=== PATIENT | male | born 1945 | race Caucasian/White ===

== ENCOUNTER 2018-02-17 06:44 | Day surgery (SDC) | payer OTHER, MEDICARE ==
[~2018-02-17 06:44] MED LIST: Lactated Ringers 1,000 ML IV SCH; Lidocaine 1%/Sod Bicarbonate in NS 8.4% 1 ML Syringe IDERM PRN; Sodium Chloride 0.9% 10 ML Syringe FLUSH PRN
--- NOTE | 2018-02-17 07:49 | PCM.PREANE ---
Preanesthetic Assessment - Anesthesia/Transfusion/Family Hx Anesthesia History: Prior Anesthesia Without Reaction Family History of Anesthesia Reaction: No Transfusion History: No Prior Transfusion(s) - Review of Systems General: No Symptoms Pulmonary: No Symptoms Cardiovascular: No Symptoms Gastrointestinal: No Symptoms Neurological: Seizure (seizure disorder), Other (bee sting reaction) Other: Reports: None - Physical Assessment NPO Status Date: 02/16/18 NPO Status Time: 00:00 Pulse: 63 O2 Sat by Pulse Oximetry: 98 Respiratory Rate: 16 Blood Pressure: 159/93 Temperature: 36.6 C Height: 1.8 m Weight: 91 kg ASA Class: 3 Mental Status: Alert & Oriented x3 Dentition: Reports: Emma(s), Missing Tooth/Teeth Thyro-Mental Finger Breadths: 3 Mouth Opening Finger Breadths: 3 ROM/Head Extension: Full Lungs: Clear to Auscultation, Normal Respiratory Effort Cardiovascular: Regular Rate, Regular Rhythm - Allergies Allergies/Adverse Reactions: Allergies Allergy/AdvReac Type Severity Reaction Status Date / Time bee pollen Allergy Anaphylactic Verified 02/16/18 15:38 Shock omeprazole Allergy Cannot Verified 02/16/18 15:38 Remember - Blood Blood Available: No Product(s) Available: None - Anesthesia Plan Pre-Op Medication Ordered: None - Acknowledgements Anesthesia Type Planned: MAC Pt an Appropriate Candidate for the Planned Anesthesia: Yes Alternatives and Risks of Anesthesia Discussed w Pt/Guardian: Yes Pt/Guardian Understands and Agrees with Anesthesia Plan: Yes PreAnesthesia Questionnaire HEENT History: Reports: Hard of Hearing, Other (See Below) Other HEENT History: tinnitis, bilateral hearing aids Cardiovascular History: Reports: Other (See Below) Other Cardiovascular History: palpitations, pvcs Respiratory History: Reports: SOB Gastrointestinal History: Reports: Hiatal Hernia, Other (See Below) Other Gastrointestinal History: dysphagia, heartburn, reflux, melena, salmonella , colitis Genitourinary History: Reports: Other (See Below) Other Genitourinary History: ED, nocturia, vasectomy CRYPTOGRAPHER History: Reports: None Musculoskeletal History: Reports: Arthritis, Other (See Below) Other Musculoskeletal History: finger numbness, finger surgery Neurological History: Reports: Seizure, Other (See Below) Other Neuro History: dizziness Psychiatric History: Reports: Addiction, Other (See Below) Other Psychiatric History: ETOH abuse, insomnia Endocrine/Metabolic History: Reports: None Hematologic History: Reports: Anemia Immunologic History: Reports: None Oncologic (Cancer) History: Reports: Prostate Dermatologic History: Reports: Other (See Below) Other Dermatologic History: brown recluse spider bite with surgical intervention - Past Surgical History HEENT Surgical History: Reports: LASIK Respiratory Surgical History: Reports: None GI Surgical History: Reports: None Male Surgical History: Reports: Vasectomy Endocrine Surgical History: Reports: None Neurological Surgical History: Reports: None Oncologic Surgical History: Reports: None - SUBSTANCE USE Smoking Status *Q: Never Smoker Tobacco Use Within Last Twelve Months: No Second Hand Smoke Exposure: No Days Per Week of Alcohol Use: 5 Number of Drinks Per Day: 1 Total Drinks Per Week: 5 Recreational Drug Use History: Yes Recreational Drug Type: Reports: Marijuana/Hashish (a month ago) - HOME MEDS Home Medications: Home Meds EPINEPHrine [Epipen] 1 dose IM ONETIME PRN 02/16/18 [History] - CURRENT (IN HOUSE) MEDS Current Meds: Current Medications Lactated Ringer's (Ringers, Lactated) 1,000 mls @ 125 mls/hr IV ASDIRECTED CAYETANO Last Admin: 02/17/18 07:20 Dose: 125 mls/hr Lidocaine/Sodium Bicarbonate (Buffered Lidocaine 1% In Ns 8.4%) 0.25 ml IDERM ONETIME PRN PRN Reason: Prior to IV Start Last Admin: 02/17/18 07:19 Dose: 0.25 ml Sodium Chloride (Saline Flush) 10 ml FLUSH ASDIRECTED PRN PRN Reason: Keep Vein Open
[2018-02-17] MEDS ORDERED: Midazolam 1 MG/ML 2 ML SDV ONE (08:05)
[2018-02-17] MEDS ORDERED: Lidocaine 1% 4 ML ONE (08:05)
[2018-02-17] MEDS ORDERED: Propofol 200 MG/20 ML SDV ONE ×2 (08:05→08:38)
--- NOTE | 2018-02-17 08:52 | PCM.OPNOTE ---
- General Post-Op/Procedure Note Date of Surgery/Procedure: 02/17/18 Operative Procedure(s): egd with bx and balloon dilitation to 45 F of esophagus Pre Op Diagnosis: GERD/Dysphagia Post-Op Diagnosis: Same Anesthesia Technique: MAC Primary Surgeon: Sarmad Main EBL in mLs: 0 Complications: None Condition: Good
--- NOTE | 2018-02-17 10:33 | OR ---
DATE OF OPERATION: 02/17/2018 SURGEON: Sarmad Main MD PREOPERATIVE DIAGNOSIS: Gastroesophageal reflux disease and dysphagia. POSTOPERATIVE DIAGNOSIS: Gastroesophageal reflux disease and dysphagia. OPERATION PERFORMED: Esophagogastroduodenoscopy with biopsy and balloon dilatation to 45-Armenian. FINDINGS: A large fixed hiatal hernia with stomach above the diaphragm with GE junction located at 35 cm. There was a Schatzki's ring at the GE junction with some exudate at its edge indicating some erosive esophagitis. Second portion of the duodenum, duodenal bulb, pyloric channel, antrum, body and cardia of the stomach and the hiatal hernia pouch were free of any acute disease. ANESTHESIA: Done under IV sedation. DESCRIPTION OF PROCEDURE: The patient was taken to the treatment room, connected to monitoring equipment, and given IV sedation. The patient was placed in left lateral position. Bite block was inserted and video Olympus gastroscope placed in the posterior oropharynx, under direct vision, threaded past the cricopharyngeus, down the esophagus and into the stomach. The stomach was insufflated, and the scope passed through the pylorus to the second portion of the duodenum and slowly withdrawn, showing the normal second portion of the duodenum, duodenal bulb, and pyloric channel. Antrum was unremarkable. Body and cardia of stomach revealed, J-maneuver showed a large hiatal hernia, incompetent hiatus with a large portion of the stomach above the diaphragm. The antrum was biopsied. Scope withdrawn to the hiatal hernia pouch, did not see any pathology, and then it was withdrawn to the GE junction, which showed a Schatzki's ring, some erosion at one area of the ring, which was biopsied. No tumor masses were seen. The Schatzki's ring was then dilated up to 45-Armenian with balloon dilators. The rest of the esophagus viewed as the scope withdrawn was normal. The patient tolerated the procedure. Specimen sent to pathology in a labeled container. The patient will be followed up in the [place] clinic. ESTIMATED BLOOD LOSS: MMODAL /[id number]
== END 2018-02-17 10:20 | disposition home or self-care (01) ==
LOC: JD.SDS 06:44
PROVIDERS: ATTEND Surgery
DX: K21.9 Gastro-esophageal reflux disease without esophagitis (principal); K22.2 Esophageal obstruction; K44.9 Diaphragmatic hernia without obstruction or gangrene; D64.9 Anemia, unspecified; M19.90 Unspecified osteoarthritis, unspecified site; I10 Essential (primary) hypertension; C34.90 Malignant neoplasm of unspecified part of unspecified bronchus or lung; C61 Malignant neoplasm of prostate; E78.5 Hyperlipidemia, unspecified; Z88.6 Allergy status to analgesic agent; Z88.8 Allergy status to other drugs, medicaments and biological substances; Z91.048 Other nonmedicinal substance allergy status; Z79.899 Other long term (current) drug therapy
CPT/HCPCS: 43239; 43249; J2250; J2704; J7120; J2001

== ENCOUNTER 2024-03-06 10:58 | Inpatient (IN) | payer MEDICARE, OTHER ==
[2024-03-06 11:53] LABS: BASOPHILS PERCENT AUTO 0.3 % (0.0-1.0); EOSINOPHILS PERCENT AUTO 0.1 % (0.0-6.0); HEMATOCRIT 29.7 % (42.0-52.0); HEMOGLOBIN 8.8 gm/dl (14.0-18.0); IMMATURE GRAN ABSOLUTE AUTO 0.06 K/mm3 (0.00-0.05); IMMATURE GRAN PERCENT AUTO 0.5 % (0.0-0.4); LYMPHOCYTES ABSOLUTE AUTO 0.7 K/mm3 (1.0-4.8); LYMPHOCYTES PERCENT AUTO 5.5 % (24.0-44.0); MEAN CORPUSCULAR HEMOGLOBIN 22.3 pg (28.0-32.0); MEAN CORPUSCULAR HGB CONC 29.6 g/dl (32.0-36.0); MEAN CORPUSCULAR VOLUME 75.2 fl (83.0-99.0); MEAN PLATELET VOLUME 9.3 fl (9.4-12.4); MONOCYTES ABSOLUTE AUTO 1.3 K/mm3 (0.0-0.8); MONOCYTES PERCENT AUTO 10.1 % (0.0-8.0); NEUTROPHILS PERCENT AUTO 83.5 % (41.0-71.0); PLATELET COUNT,PLT 528 K/mm3 (150-400); RED BLOOD CELL COUNT 3.95 M/mm3 (4.52-5.90); WHITE BLOOD CELL COUNT,WBC 13.19 K/mm3 (3.9-11.3)
[2024-03-06 12:16] LABS: LACTIC ACID 0.8 mmol/L (0.4-2.0)
[2024-03-06] MEDS: Sodium Chloride 0.9% 10 ML Syringe FLUSH ONE (12:21)
[2024-03-06 12:26] LABS: A/G RATIO 0.7 (1-2); ALBUMIN 2.6 g/dl (3.4-5.0); ANION GAP 14.4 (5-15); BILIRUBIN TOTAL 0.6 mg/dL (0.2-1.0); BUN/CREATININE RATIO 11.1 (14-18); C-REACTIVE PROTEIN 9.66 mg/dL (<0.30); CALCIUM 8.7 mg/dL (8.5-10.1); CREATININE 0.9 mg/dL (0.7-1.3); EST CRCL DRUG DOSING (CG) 65.28 mL/min; MAGNESIUM 1.9 mg/dL (1.8-2.4); POTASSIUM,K 4.4 mEq/L (3.5-5.1); PROTEIN TOTAL,TP 6.1 g/dl (6.4-8.2); TSH 1.066 uIU/mL (0.358-3.74)
[2024-03-06] MEDS: Iopamidol 755 Mg/ML 100 ML Bottle IVPUSH ONE (12:36)
[2024-03-06 12:45] LABS: APPEARANCE,URINE CLEAR (Clear); BILIRUBIN,URINE NEGATIVE (Negative); COLOR,URINE YELLOW (Yellow); GLUCOSE,URINE NEGATIVE (Negative); KETONES,URINE NEGATIVE (Negative); LEUKOCYTE ESTERASE,URINE NEGATIVE (Negative); NITRITE,URINE NEGATIVE (Negative); OCCULT BLOOD,URINE NEGATIVE (Negative); PROTEIN,URINE NEGATIVE (Negative); UROBILINOGEN,URINE 0.2 (0.2-1.0)
[2024-03-06] MEDS: Sodium Chloride 0.9% 1,000 ML IV SCH ×2 (14:28→22:55)
[2024-03-06] MEDS: Piperacillin/Tazobactam 4.5 GM in Sodium Chloride 0.9% 100 ML IV ONE (14:29)
[2024-03-06] MEDS ORDERED: Naloxone 0.4 MG/ML SDV IVPUSH PRN (15:42)
[2024-03-06] MEDS: fentaNYL 100 MCG/2 ML SDV IVPUSH ONE (15:50)
[2024-03-06] MEDS ORDERED: Lactated Ringers 1,000 ML IV SCH (16:15)
[2024-03-06] MEDS ORDERED: EPINEPHrine 0.3 MG/0.3 ML Pen Autoinjector IM PRN (16:18)
[2024-03-06] MEDS: HYDROmorphone 0.5 MG/0.5 ML Syringe IVPUSH PRN (17:13)
[2024-03-06] MEDS: Ondansetron 4 MG/2 ML SDV IV PRN (17:13)
[2024-03-06] MEDS: Piperacillin/Tazobactam 4.5 GM in Sodium Chloride 0.9% 100 ML IV SCH (17:13)
[2024-03-06] MEDS: Ibuprofen 600 MG Tab PO SCH (18:40)
[2024-03-06] MEDS: Acetaminophen 325 MG Tab PO SCH (18:40)
[2024-03-06] MEDS: Polyethylene Glycol/Electrolytes 4,000 ML Bottle PO ONE (18:41)
[2024-03-07 04:51] LABS: BASOPHILS ABSOLUTE AUTO 0.1 K/mm3 (0.0-0.2); BASOPHILS PERCENT AUTO 0.5 % (0.0-1.0); EOSINOPHILS ABSOLUTE AUTO 0.1 K/mm3 (0.0-0.4); HEMOGLOBIN 8.5 gm/dl (14.0-18.0); IMMATURE GRAN ABSOLUTE AUTO 0.06 K/mm3 (0.00-0.05); IMMATURE GRAN PERCENT AUTO 0.5 % (0.0-0.4); LYMPHOCYTES ABSOLUTE AUTO 0.9 K/mm3 (1.0-4.8); LYMPHOCYTES PERCENT AUTO 7.3 % (24.0-44.0); MEAN CORPUSCULAR HEMOGLOBIN 22.2 pg (28.0-32.0); MEAN CORPUSCULAR HGB CONC 29.3 g/dl (32.0-36.0); MEAN CORPUSCULAR VOLUME 75.7 fl (83.0-99.0); MONOCYTES ABSOLUTE AUTO 1.4 K/mm3 (0.0-0.8); MONOCYTES PERCENT AUTO 11.3 % (0.0-8.0); NEUTROPHILS ABSOLUTE AUTO 10.1 K/mm3 (1.8-7.7); NEUTROPHILS PERCENT AUTO 79.4 % (41.0-71.0); PLATELET COUNT,PLT 466 K/mm3 (150-400); RED BLOOD CELL COUNT 3.83 M/mm3 (4.52-5.90); WHITE BLOOD CELL COUNT,WBC 12.66 K/mm3 (3.9-11.3)
[2024-03-07 05:13] LABS: ANION GAP 14.9 (5-15); BUN/CREATININE RATIO 10.9 (14-18); CALCIUM 8.3 mg/dL (8.5-10.1); CREATININE 1.1 mg/dL (0.7-1.3); EST CRCL DRUG DOSING (CG) 60.85 mL/min; MAGNESIUM 1.9 mg/dL (1.8-2.4); PHOSPHORUS 4.5 mg/dL (2.6-4.7); POTASSIUM,K 3.9 mEq/L (3.5-5.1)
[2024-03-07] MEDS ORDERED: Sodium Chloride 0.9% 10 ML Syringe FLUSH PRN (08:08)
[2024-03-07] MEDS ORDERED: EPINEPHrine 1 MG/ML SDV IM PRN (08:12)
[2024-03-07] MEDS ORDERED: Lactated Ringers 1,000 ML IV SCH (08:15)
[2024-03-07] MEDS ORDERED: Lidocaine 1% PF 2 ML SDV ONE ×2 (08:33)
[2024-03-07] MEDS ORDERED: Lidocaine 1% 4 ML ONE (08:33)
[2024-03-07] MEDS ORDERED: Propofol 200 MG/20 ML SDV ONE ×2 (08:33→09:00)
[2024-03-07] MEDS: Sodium Chloride 0.9% 10 ML Syringe FLUSH SCH (09:21)
[2024-03-07] MEDS: traMADol 50 MG Tab PO PRN (13:53)
[2024-03-07] MEDS: Levofloxacin 500 MG Tab PO ONE ×2 (13:53→14:58)
[2024-03-07] MEDS: metroNIDAZOLE 500 MG Tab PO ONE ×2 (13:53→14:57)
[2024-03-07] MEDS ORDERED: Levofloxacin 500 MG Tab PO ONE (14:30)
[2024-03-07] MEDS ORDERED: metroNIDAZOLE 500 MG Tab PO ONE (14:31)
[2024-03-08 04:48] LABS: BASOPHILS ABSOLUTE AUTO 0.1 K/mm3 (0.0-0.2); BASOPHILS PERCENT AUTO 0.5 % (0.0-1.0); EOSINOPHILS ABSOLUTE AUTO 0.1 K/mm3 (0.0-0.4); EOSINOPHILS PERCENT AUTO 0.6 % (0.0-6.0); HEMATOCRIT 28.4 % (42.0-52.0); HEMOGLOBIN 8.2 gm/dl (14.0-18.0); IMMATURE GRAN ABSOLUTE AUTO 0.06 K/mm3 (0.00-0.05); IMMATURE GRAN PERCENT AUTO 0.5 % (0.0-0.4); LYMPHOCYTES ABSOLUTE AUTO 0.5 K/mm3 (1.0-4.8); LYMPHOCYTES PERCENT AUTO 4.1 % (24.0-44.0); MEAN CORPUSCULAR HEMOGLOBIN 22.3 pg (28.0-32.0); MEAN CORPUSCULAR HGB CONC 28.9 g/dl (32.0-36.0); MEAN CORPUSCULAR VOLUME 77.2 fl (83.0-99.0); MEAN PLATELET VOLUME 9.5 fl (9.4-12.4); MONOCYTES PERCENT AUTO 7.9 % (0.0-8.0); NEUTROPHILS ABSOLUTE AUTO 11.1 K/mm3 (1.8-7.7); NEUTROPHILS PERCENT AUTO 86.4 % (41.0-71.0); PLATELET COUNT,PLT 457 K/mm3 (150-400); RED BLOOD CELL COUNT 3.68 M/mm3 (4.52-5.90); WHITE BLOOD CELL COUNT,WBC 12.81 K/mm3 (3.9-11.3)
[2024-03-08 05:24] LABS: ANION GAP 14.6 (5-15); CALCIUM 8.2 mg/dL (8.5-10.1); EST CRCL DRUG DOSING (CG) 66.93 mL/min; MAGNESIUM 1.9 mg/dL (1.8-2.4); POTASSIUM,K 4.6 mEq/L (3.5-5.1)
[2024-03-08] MEDS ORDERED: EPINEPHrine 1 MG/ML SDV ONE (11:22)
[2024-03-08] MEDS ORDERED: Propofol 200 MG/20 ML SDV ONE ×5 (12:59→15:41)
[2024-03-08] MEDS ORDERED: fentaNYL 250 MCG/5 ML SDV ONE (12:59)
[2024-03-08] MEDS ORDERED: dexmedeTOMIDine HCl 200 MCG/2 ML SDV ONE (13:00)
[2024-03-08] MEDS ORDERED: Ketorolac 30 MG/ML SDV ONE (13:00)
[2024-03-08] MEDS ORDERED: Rocuronium 50 MG/5 ML Vial ONE ×2 (13:00→15:18)
[2024-03-08] MEDS ORDERED: Ondansetron 4 MG/2 ML SDV ONE ×3 (13:00)
[2024-03-08] MEDS ORDERED: Morphine PF 10 MG/10 ML SDV ONE (13:04)
[2024-03-08] MEDS ORDERED: HYDROmorphone 0.5 MG/0.5 ML Syringe ONE ×2 (14:26→14:27)
[2024-03-08] MEDS ORDERED: Sodium Chloride 0.9% 100 ML IV ONE (14:30)
[2024-03-08] MEDS ORDERED: Piperacillin/Tazobactam 4.5 GM Vial ONE (14:30)
[2024-03-08] MEDS ORDERED: Sodium Chloride 0.9% 1,000 ML ONE (14:33)
[2024-03-08] MEDS ORDERED: Dexamethasone 4 MG/ML 5 ML MDV ONE (14:33)
[2024-03-08] MEDS ORDERED: Lactated Ringers 1,000 ML ONE (14:33)
[2024-03-08] MEDS ORDERED: diphenhydrAMINE 50 MG/ML SDV ONE (14:33)
[2024-03-08] MEDS ORDERED: fentaNYL 100 MCG/2 ML SDV ONE (15:10)
[2024-03-08] MEDS ORDERED: Sugammadex Sodium 200 MG/2 ML VIAL IV ONE (15:59)
[2024-03-08] MEDS: Bupivacaine 0.5% 30 ML SDV ONE (16:00)
[2024-03-08] MEDS ORDERED: fentaNYL 100 MCG/2 ML SDV IVPUSH PRN (16:32)
[2024-03-08] MEDS: HYDROmorphone 0.5 MG/0.5 ML Syringe IVPUSH PRN (16:44)
[2024-03-08] MEDS: Lactated Ringers 1,000 ML IV SCH (17:43)
[2024-03-08] MEDS: Enoxaparin 30 MG/0.3 ML Syringe SUBCUT SCH (21:08)
[2024-03-09] MEDS: oxyCODONE 5 MG Tab PO PRN (05:00)
[2024-03-09 05:44] LABS: ANION GAP 20.9 (5-15); BUN/CREATININE RATIO 8.2 (14-18); CREATININE 1.1 mg/dL (0.7-1.3); EST CRCL DRUG DOSING (CG) 60.85 mL/min; MAGNESIUM 1.9 mg/dL (1.8-2.4); PHOSPHORUS 4.4 mg/dL (2.6-4.7); POTASSIUM,K 4.9 mEq/L (3.5-5.1)
[2024-03-09 05:51] LABS: HEMATOCRIT 34.7 % (42.0-52.0); IMMATURE GRAN ABSOLUTE AUTO 0.19 K/mm3 (0.00-0.05); IMMATURE GRAN PERCENT AUTO 0.8 % (0.0-0.4); LYMPHOCYTES ABSOLUTE AUTO 0.5 K/mm3 (1.0-4.8); MEAN CORPUSCULAR HEMOGLOBIN 23.8 pg (28.0-32.0); MEAN CORPUSCULAR HGB CONC 30.3 g/dl (32.0-36.0); MEAN CORPUSCULAR VOLUME 78.7 fl (83.0-99.0); MEAN PLATELET VOLUME 10.6 fl (9.4-12.4); MONOCYTES ABSOLUTE AUTO 1.5 K/mm3 (0.0-0.8); MONOCYTES PERCENT AUTO 5.8 % (0.0-8.0); NEUTROPHILS ABSOLUTE AUTO 23.1 K/mm3 (1.8-7.7); NEUTROPHILS PERCENT AUTO 91.4 % (41.0-71.0); PLATELET COUNT,PLT 508 K/mm3 (150-400); RED BLOOD CELL COUNT 4.41 M/mm3 (4.52-5.90); WHITE BLOOD CELL COUNT,WBC 25.33 K/mm3 (3.9-11.3)
[2024-03-09 05:57] LABS: HEMOGLOBIN 10.5 gm/dl (14.0-18.0)
[2024-03-09 06:33] LABS: SLIDE REVIEW ABNORMAL SMEAR
[2024-03-09] MEDS: diphenhydrAMINE 50 MG/ML SDV IVPUSH PRN (09:04)
[2024-03-09] MEDS: HYDROmorphone 1 MG/ML Syringe IVPUSH PRN (15:24)
[2024-03-10 06:31] LABS: BASOPHILS PERCENT AUTO 0.3 % (0.0-1.0); EOSINOPHILS ABSOLUTE AUTO 0.1 K/mm3 (0.0-0.4); EOSINOPHILS PERCENT AUTO 1.2 % (0.0-6.0); HEMATOCRIT 32.1 % (42.0-52.0); HEMOGLOBIN 9.8 gm/dl (14.0-18.0); IMMATURE GRAN ABSOLUTE AUTO 0.05 K/mm3 (0.00-0.05); IMMATURE GRAN PERCENT AUTO 0.4 % (0.0-0.4); LYMPHOCYTES ABSOLUTE AUTO 0.8 K/mm3 (1.0-4.8); LYMPHOCYTES PERCENT AUTO 6.7 % (24.0-44.0); MEAN CORPUSCULAR HEMOGLOBIN 23.2 pg (28.0-32.0); MEAN CORPUSCULAR HGB CONC 30.5 g/dl (32.0-36.0); MEAN CORPUSCULAR VOLUME 76.1 fl (83.0-99.0); MEAN PLATELET VOLUME 9.2 fl (9.4-12.4); MONOCYTES ABSOLUTE AUTO 1.2 K/mm3 (0.0-0.8); NEUTROPHILS ABSOLUTE AUTO 9.7 K/mm3 (1.8-7.7); NEUTROPHILS PERCENT AUTO 81.4 % (41.0-71.0); PLATELET COUNT,PLT 501 K/mm3 (150-400); RED BLOOD CELL COUNT 4.22 M/mm3 (4.52-5.90); WHITE BLOOD CELL COUNT,WBC 11.89 K/mm3 (3.9-11.3)
[2024-03-10 06:52] LABS: ANION GAP 11.4 (5-15); BUN/CREATININE RATIO 12.2 (14-18); CALCIUM 8.4 mg/dL (8.5-10.1); CREATININE 0.9 mg/dL (0.7-1.3); EST CRCL DRUG DOSING (CG) 74.37 mL/min; POTASSIUM,K 4.4 mEq/L (3.5-5.1)
== END 2024-03-11 09:58 | disposition home or self-care (01) | DRG 330 ==
LOC: JD.ED 10:58 → JD.MS 16:59
PROVIDERS: ADMIT Student in an Organized Health Care Education/Training Program; ATTEND Student in an Organized Health Care Education/Training Program
PROC: 0DTF0ZZ Resection of Right Large Intestine, Open Approach (ICD-10-PCS; principal; 2024-03-06)
PROC: 0FB00ZX Excision of Liver, Open Approach, Diagnostic (ICD-10-PCS; 2024-03-06)
PROC: 0DJD8ZZ Inspection of Lower Intestinal Tract, Via Natural or Artificial Opening Endoscopic (ICD-10-PCS; 2024-03-06)
DX: R10.31 Right lower quadrant pain (principal); R19.03 Right lower quadrant abdominal swelling, mass and lump; C18.9 Malignant neoplasm of colon, unspecified; Z88.1 Allergy status to other antibiotic agents; K63.0 Abscess of intestine; K52.9 Noninfective gastroenteritis and colitis, unspecified; E78.00 Pure hypercholesterolemia, unspecified; I10 Essential (primary) hypertension; H91.90 Unspecified hearing loss, unspecified ear; M19.90 Unspecified osteoarthritis, unspecified site; D64.9 Anemia, unspecified; G47.00 Insomnia, unspecified; D50.9 Iron deficiency anemia, unspecified; R56.9 Unspecified convulsions; Z88.8 Allergy status to other drugs, medicaments and biological substances; Z98.52 Vasectomy status; Z91.030 Bee allergy status
CPT/HCPCS: 36415; 74177; 80053; 81003; 83605; 83735; 83880; 84443; 84484; 85025; 86140; 87040 ×2; 87635; 93005; 96361; 96365; 96375; 99285; J2543; J3010; J3490 ×2; J7030; Q9967; 00790; 00811; 36430; 80048; 82378; 84100; 86850; 86900; 86901; 86922; 93010; 94760; 94761; 94762; 97161-GP; 99100; A9270-GY; J0171; J0665; J1100; J1170; J1200; J1650; J1885; J2274; J2405; J2704; J7120; P9016; U0002

== ENCOUNTER 2024-03-18 10:07 | Inpatient (IN) | payer OTHER ==
[2024-03-18] MEDS: Sodium Chloride 0.9% 1,000 ML IV STA (10:50)
[2024-03-18] MEDS: Ondansetron 4 MG/2 ML SDV IVPUSH ONE (10:50)
[2024-03-18] MEDS: Iopamidol 612 MG/ML 100 ML Bottle IVPUSH ONE (10:56)
[2024-03-18] MEDS: Sodium Chloride 0.9% 10 ML Syringe FLUSH PRN (10:57)
[2024-03-18 11:05] LABS: BASOPHILS PERCENT AUTO 0.3 % (0.0-1.0); EOSINOPHILS ABSOLUTE AUTO 0.1 K/mm3 (0.0-0.4); EOSINOPHILS PERCENT AUTO 0.8 % (0.0-6.0); HEMATOCRIT 32.5 % (42.0-52.0); HEMOGLOBIN 9.9 gm/dl (14.0-18.0); IMMATURE GRAN ABSOLUTE AUTO 0.04 K/mm3 (0.00-0.05); IMMATURE GRAN PERCENT AUTO 0.3 % (0.0-0.4); LYMPHOCYTES ABSOLUTE AUTO 0.6 K/mm3 (1.0-4.8); LYMPHOCYTES PERCENT AUTO 5.4 % (24.0-44.0); MEAN CORPUSCULAR HEMOGLOBIN 23.1 pg (28.0-32.0); MEAN CORPUSCULAR HGB CONC 30.5 g/dl (32.0-36.0); MEAN CORPUSCULAR VOLUME 75.9 fl (83.0-99.0); MEAN PLATELET VOLUME 8.7 fl (9.4-12.4); MONOCYTES PERCENT AUTO 8.2 % (0.0-8.0); NEUTROPHILS ABSOLUTE AUTO 9.8 K/mm3 (1.8-7.7); PLATELET COUNT,PLT 652 K/mm3 (150-400); RED BLOOD CELL COUNT 4.28 M/mm3 (4.52-5.90); WHITE BLOOD CELL COUNT,WBC 11.53 K/mm3 (3.9-11.3)
[2024-03-18 11:25] LABS: A/G RATIO 0.8 (1-2); ALBUMIN 2.6 g/dl (3.4-5.0); ANION GAP 10.5 (5-15); BILIRUBIN TOTAL 0.4 mg/dL (0.2-1.0); BUN/CREATININE RATIO 17.5 (14-18); CALCIUM 8.6 mg/dL (8.5-10.1); CREATININE 0.8 mg/dL (0.7-1.3); EST CRCL DRUG DOSING (CG) 83.67 mL/min; POTASSIUM,K 3.5 mEq/L (3.5-5.1)
[2024-03-18 12:29] LABS: APPEARANCE,URINE CLEAR (Clear); BILIRUBIN,URINE 1+ (Negative); COLOR,URINE YELLOW (Yellow); GLUCOSE,URINE NEGATIVE (Negative); KETONES,URINE 4+ (Negative); LEUKOCYTE ESTERASE,URINE NEGATIVE (Negative); NITRITE,URINE NEGATIVE (Negative); OCCULT BLOOD,URINE NEGATIVE (Negative); PROTEIN,URINE NEGATIVE (Negative); UROBILINOGEN,URINE 0.2 (0.2-1.0)
[2024-03-18 12:35] LABS: BACTERIA,URINE FEW /hpf (FEW); MUCUS,URINE FEW /hpf (FEW); RBC,URINE 0-5 /hpf (0-5); SQUAMOUS EPITHELIAL CELLS,UR 0-5 /hpf (0-5); WBC,URINE 0-5 /hpf (0-5)
[2024-03-18] MEDS ORDERED: Morphine 2 MG/ML SYRINGE IVPUSH PRN (12:55)
[2024-03-18] MEDS: Benzocaine 20% Topical Spray UD MUCMEM ONE (14:00)
[2024-03-18] MEDS: LORazepam 2 MG/ML SDV IVPUSH ONE (14:14)
[2024-03-18] MEDS: HYDROmorphone 0.5 MG/0.5 ML Syringe IVPUSH ONE (14:14)
[2024-03-18] MEDS: Lactated Ringers 1,000 ML IV SCH (14:55)
[2024-03-18] MEDS: Lidocaine 4% Top Soln 50 ML Bottle MUCMEM ONE (17:23)
[2024-03-18] MEDS: Benzocaine/Cetylpyridinium/Menthol Lozenge MUCMEM PRN (17:30)
[2024-03-19] MEDS: Ondansetron 4 MG/2 ML SDV IV PRN (05:08)
[2024-03-19 05:40] LABS: BASOPHILS ABSOLUTE AUTO 0.1 K/mm3 (0.0-0.2); BASOPHILS PERCENT AUTO 0.7 % (0.0-1.0); EOSINOPHILS ABSOLUTE AUTO 0.4 K/mm3 (0.0-0.4); EOSINOPHILS PERCENT AUTO 3.8 % (0.0-6.0); HEMATOCRIT 28.7 % (42.0-52.0); HEMOGLOBIN 8.9 gm/dl (14.0-18.0); IMMATURE GRAN ABSOLUTE AUTO 0.06 K/mm3 (0.00-0.05); IMMATURE GRAN PERCENT AUTO 0.6 % (0.0-0.4); LYMPHOCYTES ABSOLUTE AUTO 0.8 K/mm3 (1.0-4.8); LYMPHOCYTES PERCENT AUTO 7.5 % (24.0-44.0); MEAN CORPUSCULAR HEMOGLOBIN 23.2 pg (28.0-32.0); MEAN CORPUSCULAR VOLUME 74.7 fl (83.0-99.0); MONOCYTES ABSOLUTE AUTO 0.9 K/mm3 (0.0-0.8); MONOCYTES PERCENT AUTO 8.6 % (0.0-8.0); NEUTROPHILS PERCENT AUTO 78.8 % (41.0-71.0); RED BLOOD CELL COUNT 3.84 M/mm3 (4.52-5.90)
[2024-03-19 05:43] LABS: PLATELET COUNT,PLT 565 K/mm3 (150-400)
[2024-03-19 05:54] LABS: ANION GAP 11.6 (5-15); BUN/CREATININE RATIO 12.9 (14-18); CALCIUM 8.3 mg/dL (8.5-10.1); CREATININE 0.7 mg/dL (0.7-1.3); EST CRCL DRUG DOSING (CG) 95.62 mL/min; MAGNESIUM 1.8 mg/dL (1.8-2.4); POTASSIUM,K 3.6 mEq/L (3.5-5.1)
[2024-03-19] MEDS: Enoxaparin 40 MG/0.4 ML Syringe SUBCUT SCH (08:02)
[2024-03-19] MEDS: Lactated Ringers 1,000 ML IV SCH (10:27)
[2024-03-19] MEDS: Promethazine 25 MG Tab PO PRN (15:33)
[2024-03-19] MEDS: Pantoprazole 40 MG Vial IVPUSH SCH (15:33)
[2024-03-19] MEDS: Morphine 2 MG/ML SYRINGE IVPUSH PRN (16:35)
[2024-03-19] MEDS: Ondansetron 4 MG/2 ML SDV IVPUSH ONE (17:11)
[2024-03-19] MEDS: Ibuprofen 600 MG Tab PO PRN (20:08)
[2024-03-20] MEDS: Simethicone 80 MG Tab.Chew PO PRN (08:19)
[2024-03-20] MEDS: Acetaminophen 325 MG/10.15 ML PO PRN (19:55)
== END 2024-03-21 12:37 | disposition home or self-care (01) | DRG 389 ==
LOC: JD.ED 10:07 → JD.MS 12:55
PROVIDERS: ADMIT Surgery; ATTEND Surgery
DX: K56.609 Unspecified intestinal obstruction, unspecified as to partial versus complete obstruction (principal); K56.7 Ileus, unspecified; K44.0 Diaphragmatic hernia with obstruction, without gangrene; I10 Essential (primary) hypertension; Z91.048 Other nonmedicinal substance allergy status; N40.0 Benign prostatic hyperplasia without lower urinary tract symptoms; Z88.1 Allergy status to other antibiotic agents; M19.90 Unspecified osteoarthritis, unspecified site; G89.29 Other chronic pain; E78.00 Pure hypercholesterolemia, unspecified; M54.9 Dorsalgia, unspecified; D64.89 Other specified anemias; H91.90 Unspecified hearing loss, unspecified ear; R56.9 Unspecified convulsions; Z88.8 Allergy status to other drugs, medicaments and biological substances; Z91.030 Bee allergy status; Z98.52 Vasectomy status; Z79.899 Other long term (current) drug therapy
CPT/HCPCS: 36415; 74177; 80053; 81001; 83690; 85025; 96361; 96374; 99285; J2405; J3490; J7030; Q9967; 74176; 74176-26; 80048; 83735; 84100; 94760; A9270-GY; J1170; J1650; J2060; J2270; J2470; J7120; J8597

== ENCOUNTER 2025-01-16 08:41 | Day surgery (SDC) | payer MEDICARE, OTHER ==
[~2025-01-16 08:41] MED LIST changes: -Lactated Ringers 1,000 ML IV SCH; -Lidocaine 1%/Sod Bicarbonate in NS 8.4% 1 ML Syringe IDERM PRN; +Sodium Chloride 0.9% 10 ML Syringe FLUSH SCH
[2025-01-16] MEDS: Lactated Ringers 1,000 ML IV SCH (09:20)
[2025-01-16 09:27] LABS: BASOPHILS ABSOLUTE AUTO 0.1 K/mm3 (0.0-0.2); BASOPHILS PERCENT AUTO 1.0 % (0.0-1.0); EOSINOPHILS ABSOLUTE AUTO 0.7 K/mm3 (0.0-0.4); EOSINOPHILS PERCENT AUTO 11.1 % (0.0-6.0); IMMATURE GRAN ABSOLUTE AUTO 0.02 K/mm3 (0.00-0.05); IMMATURE GRAN PERCENT AUTO 0.3 % (0.0-0.4); LYMPHOCYTES ABSOLUTE AUTO 0.9 K/mm3 (1.0-4.8); LYMPHOCYTES PERCENT AUTO 13.9 % (24.0-44.0); MEAN PLATELET VOLUME 9.3 fl (9.4-12.4); MONOCYTES ABSOLUTE AUTO 0.8 K/mm3 (0.0-0.8); MONOCYTES PERCENT AUTO 12.7 % (0.0-8.0); NEUTROPHILS ABSOLUTE AUTO 3.8 K/mm3 (1.8-7.7); NEUTROPHILS PERCENT AUTO 61.0 % (41.0-71.0); NRBC ABSOLUTE 0.00 (0.00-0.02); NRBC PERCENT 0.0 % (0.0-0.2); PLATELET COUNT,PLT 235 K/mm3 (150-400); RED BLOOD CELL COUNT 5.57 M/mm3 (4.52-5.90); WHITE BLOOD CELL COUNT,WBC 6.24 K/mm3 (3.9-11.3)
[2025-01-16] MEDS ORDERED: propofoL 500 MG/50 ML 50 ML ONE (09:44)
[2025-01-16] MEDS ORDERED: Midazolam 1 MG/ML 2 ML SDV ONE (09:45)
[2025-01-16] MEDS ORDERED: fentaNYL 100 MCG/2 ML SDV ONE (09:45)
[2025-01-16] MEDS ORDERED: Dexamethasone 4 MG/ML 5 ML MDV ONE (09:48)
[2025-01-16] MEDS ORDERED: Ropivacaine 0.5% 5 MG/ML 30 ML SDV ONE (09:48)
[2025-01-16] MEDS ORDERED: Esmolol 100 MG/10 ML SDV ONE (09:49)
[2025-01-16 09:56] LABS: A/G RATIO 1.1 (1-2); ALANINE AMINOTRANSFERASE,ALT 21 U/L (16-63); ASPARTATE AMNIOTRANSFERASE,AST 23 U/L (15-37); BILIRUBIN TOTAL 0.7 mg/dL (0.2-1.0); BLOOD UREA NITROGEN,BUN 15 mg/dL (7-18); CARBON DIOXIDE,CO2 24 mEq/L (21-32); CHLORIDE,CL 106 mEq/L (98-107); CREATININE 0.8 mg/dL (0.7-1.3); ESTIMATED GFR 91 mL/min (>60); GLUCOSE RANDOM 97 mg/dL (70-99); POTASSIUM,K 4.1 mEq/L (3.5-5.1); PROTEIN TOTAL,TP 6.7 g/dl (6.4-8.2); SODIUM,NA 141 mEq/L (136-145)
[2025-01-16] MEDS ORDERED: Phenylephrine 1% 10 MG/ML SDV ONE (10:23)
[2025-01-16] MEDS ORDERED: Lactated Ringers 1,000 ML ONE (10:34)
[2025-01-16] MEDS: EPINEPHrine 1 MG/ML SDV ONE (10:38)
[2025-01-16] MEDS ORDERED: Propofol 200 MG/20 ML SDV ONE (11:10)
[2025-01-16] MEDS ORDERED: Ketorolac 30 MG/ML SDV ONE (11:43)
[2025-01-16] MEDS ORDERED: Ondansetron 4 MG/2 ML SDV IVPUSH PRN (12:14)
[2025-01-16] MEDS: fentaNYL 100 MCG/2 ML SDV IVPUSH PRN (12:23)
[2025-01-16] MEDS: Labetalol 100 MG/20 ML MDV IVPUSH ONE (13:22)
== END 2025-01-16 14:15 | disposition home or self-care (01) ==
LOC: JD.SDS 08:41
PROVIDERS: ATTEND Surgery
DX: K43.2 Incisional hernia without obstruction or gangrene (principal); K66.0 Peritoneal adhesions (postprocedural) (postinfection); I10 Essential (primary) hypertension; E78.00 Pure hypercholesterolemia, unspecified; Z88.8 Allergy status to other drugs, medicaments and biological substances; Z91.030 Bee allergy status; Z79.899 Other long term (current) drug therapy
CPT/HCPCS: 00752; 36415; 64488; 80053; 85025; 99100; C1781; J0171; J0665; J0690; J1100; J1805; J1885; J1920; J2003; J2250; J2371; J2704; J2795; J3010; J3490; J7120

== ENCOUNTER 2025-04-10 07:35 | Day surgery (SDC) | payer MEDICARE, OTHER ==
[2025-04-10] MEDS: Lactated Ringers 1,000 ML IV SCH (07:50)
[2025-04-10] MEDS ORDERED: Propofol 200 MG/20 ML SDV ONE (08:07)
== END 2025-04-10 09:34 | disposition home or self-care (01) ==
LOC: JD.SDS 07:35
PROVIDERS: ATTEND Surgery
DX: Z12.11 Encounter for screening for malignant neoplasm of colon (principal); K57.30 Diverticulosis of large intestine without perforation or abscess without bleeding; K64.8 Other hemorrhoids; C18.9 Malignant neoplasm of colon, unspecified; E78.00 Pure hypercholesterolemia, unspecified; Z98.0 Intestinal bypass and anastomosis status; Z88.8 Allergy status to other drugs, medicaments and biological substances; Z91.030 Bee allergy status; Z88.5 Allergy status to narcotic agent; Z79.899 Other long term (current) drug therapy
CPT/HCPCS: 45378; J2003; J2704; J7120; 00812; 99100